=== PATIENT | female | born 1945 | race Asian ===

== ENCOUNTER 2019-05-21 17:32 | Emergency (ER) | payer MEDICARE ==
[~2019-05-21] VITALS: Ht 149.9 cm; Wt 43.1 kg
[2019-05-21] MEDS ORDERED: LATANOPROST2.5 ML OPTH (17:43)
[2019-05-21] MEDS ORDERED: JANUVIA100 MG PO (17:43)
[2019-05-21] MEDS ORDERED: LISINOPRIL10 MG PO (17:43)
[2019-05-21] MEDS ORDERED: METFORMIN HCL500 MG PO (17:43)
[2019-05-21] MEDS ORDERED: ATORVASTATIN CA20 MG PO (17:43)
== END 2019-05-21 21:42 | disposition home or self-care (01) ==
LOC: ED 17:32
DX: R11.2 Nausea with vomiting, unspecified (principal); R19.7 Diarrhea, unspecified; E11.9 Type 2 diabetes mellitus without complications; I10 Essential (primary) hypertension; Z79.899 Other long term (current) drug therapy; Z79.84 Long term (current) use of oral hypoglycemic drugs
CPT/HCPCS: 74177; 80053; 81001; 83690; 85025; 96360; 96361; 99284-25; J7030; Q9967

== ENCOUNTER 2020-01-25 18:06 | Emergency (ER) | payer MEDICARE ==
[~2020-01-25] VITALS: Ht 149.9 cm; Wt 43.1 kg
--- OUTSIDE RECORDS SUMMARY | ~2020-01-25 | XMS | Encounter Summary ---
Demographics + + + | Address | [address] | | | [place] [address] | + + + | Home Phone | | + + + | Preferred Language | Unknown | + + + | Marital Status | | + + + | Jewish Affiliation | 1041 | + + + | Race | Unknown | + + + | Ethnic Group | or | + + + Author + + + | Author | [facility] | | | and [place] | + + + | Organization | [facility] | | | and [place] | + + + | Address | Unknown | + + + | Phone | Unavailable | + + + Care Team Providers + +------+ + | Care Park Guide Name | Role | Phone | + +------+ + PCP | Unavailable | + +------+ + Encounter Details +--------+ + + + + | Date | Type | Department | Care Team | Description | +--------+ + + + + | 08/12/ | Emergency | [facility] | Sawyer Banerjee | Hypoglycemia due to | | 2018 | | [facility]ENTER | MD Donnie [address] | type 2 diabetes | | | | EMERGENCY CENTER | [address] [place], [place] | mellitus (HCC) | | | | [address] | [address] | | | | | [place], [place] | [phone] | | | | | [address] | | | | | | [phone] | | | +--------+ + + + + Social History + +-------+ +--------+------+ | Tobacco Use | Types | Packs/Day | Years | Date | | | | | Used | | + +-------+ +--------+------+ | Never Assessed | | | | | + +-------+ +--------+------+ + + + | Sex Assigned at | Date Recorded | | | | + + + | Not on file | | + + + documented as of this encounter ED Notes Conversion Transaction, Provider Unknown - 08/12/2018 7:54 PM PDTFormatting of this note m ight be different from the original. ED Notes by Maulik Mccurdy RN at 08/12/181953 Author: Maulik Mccurdy RN Service: (none) Author Type: Registered Nurse Filed: 08/12/181954 Date of Service: 08/12/181953 Status: Signed Business Process Associate: Maulik Mccurdy RN (Registered Nurse) Pt eats pack of crackers, chicken noodle soup, and orange juice. Maulik Mccurdy RN 08/12/181954 onver yamila Transaction, Provider Unknown - 08/12/2018 7:09 PM PDT ED Notes by Maulik Mccurdy RN at 08/12/181908 Author: Maulik Mccurdy RN Service: (none) Author Type: Registered Nurse Filed: 08/12/181908 Date of Service: 08/12/181908 Status: Signed Business Process Associate: Maulik Mccurdy RN (Registered Nurse) Urine sent to lab. Maulik Mccurdy RN 08/12/181908 odgdom , Sawyer Fields MD - 08/12/2018 7:03 PM PDTFormatting of this note might be different from veda vinson. ED Provider Notes by Sawyer Banerjee MD at 08/12/181902 Author: Sawyer Banerjee MD Service: -Emergency Author Type: Physician Filed: 08/12/182048 Date of Service: 08/12/181902 Status: Signed Business Process Associate: Sawyer Banerjee MD (Physician) [facility] Department of Emergency Medicine No flowsheet data found. History of Present Illness Patient Identification Shy Hernandez is a 73 y.o. female. Patient information was obtained from patient and relative(s). History/Exam limitations: none. Patient presented to the Emergency Department by: Car Chief Complaint Chief Complaint Patient presents with Hypoglycemia- Symptomatic The patient presents with a report of altered mental status and hypoglycemia. Onset of symp toms was this morning, with a worsening course since that time. This is described to be of severe severity. The quality of this change is described as: "out of it and confused and th en lethargic". The patient has also had the following associated symptoms: had a fall from bed last night without apparent injury or pain. Care prior to arrival consisted of evaluation by EMS with f inding of BG "low" so gave 25g of D50, with complete relief. Additional information related to this complaint is the following: Pt has history of type 2 DM but is not on insulin, only oral hypoglycemics. The patient s baseline cognitive and motor function is the following: lives with family. Family reports pt did not eat breakfast this morning and did not have lunch. ECF Resident?: No PCP: No primary care provider on file. No past medical history on file. No past surgical history on file. Prior to Admission medications Not on File Allergies not on file Social History Social History Marital status: Spouse name: N/A Number of children: N/A Years of education: N/A Occupational History Not on file. Social History Main Topics Smoking status: Not on file Smokeless tobacco: Not on file Alcohol use Not on file Drug use: Unknown Sexual activity: Not on file Other Topics Concern Not on file Social History Narrative No narrative on file No family history on file. Review of Systems Constitutional: Negative for: fever, chills Eyes: Negative for: Vision changes Throat: Negative for: mouth sores Cardiovascular/Respiratory: Negative for: chest pain, shortness of breath, cough Gastrointestinal: Negative for: abdominal pain, vomiting, diarrhea, black or bloody stools Genitourinary: Negative for: dysuria, hematuria, urinary problems Musculoskeletal: Negative for: joint pain Skin: Negative for: rash Neuro and psych: Negative for: fainting, else as above Endocrine/Heme/Lymph: Negative for: swollen lymph nodes All other review of systems negative except as mentioned. Physical Exam BP (!) 222/92 | Pulse 106 | Temp 96.9 F (36.1 C) | Resp 18 | Ht 1.422 m (4' 8") | Wt 45.9 kg (101 lb 3.2 oz) | SpO2 99% | BMI 22.69 kg/m Pulse Oximetry Interpretation: Normal VS: Pt VS noted to be hyperdynamic. Afebrile. General: Awake and alert. No evident distress. No signs of head injury. Eyes: Normal inspection, pupils equal and round, non-icteric ENT: Ears normal Nose normal Neck: Normal inspection Supple No lymphadenopathy No meningismus Cardiovascular: Normal rate, rhythm. No murmur. Respiratory: Normal lung sounds. No rales, rhonchi, or wheezing. Abdomen: Soft, non-tender, non-distended No guarding or rebound Back: Normal inspection Extremities: No edema or tenderness Skin: Color normal Warm and dry No rash Neuro: No facial droop. GCS 15. No motor deficit No sensory deficit Medical Decision Making and Emergency Department Course ED Department Course Pt with AMS and hypoglycemia on EMS arrival resolved with IV D50, now "back to normal". No t on insulin, only on metformin. Will screen. BG up to 159 here. CMP shows mild hyperglycemia at 183, else normal.CBC is normal. CRP normal. Waiting for u rine. Will give PO food. Urine normal. Pt back to baseline per family. Will road test. Pt ate full meal and walks normally per family on road test. Repeat BG is benign. Will di scharge with strict follow up instructions. Pt reassessed multiple times during course of ED stay and demonstrated progressive and sust ained improvement. Neither decompensation nor new symptoms observed or reported. BP 159/77 | Pulse 81 | Temp 98.7 F (37.1 C) (Oral) | Resp 16 | Ht 1.422 m (4' 8") | Wt 45.9 kg (101 lb 3.2 oz) | SpO2 100% | BMI 22.69 kg/m Records Reviewed Old medical records.. No prior ED visits in [facility] EMR. Laboratory Evaluation COMPREHENSIVE METABOLIC PANEL - Abnormal; Notable for the following: Result Value GLUCOSE 183 (*) All other components within normal limits CBC W/AUTO DIFF (REFLEX TO MANUAL) - Abnormal; Notable for the following: MONOCYTES ABS 0.82 (*) All other components within normal limits URINALYSIS (REFLEX TO MICROSCOPIC/REFLEX TO CULTURE) - Abnormal; Notable for the following: GLUCOSE 150 (*) All other components within normal limits POCT GLUCOSE - Abnormal; Notable for the following: GLUCOSE,POC SCREEN 159 (*) All other components within normal limits POCT GLUCOSE - Abnormal; Notable for the following: GLUCOSE,POC SCREEN 142 (*) All other components within normal limits C-REACTIVE PROTEIN POCT GLUCOSE Radiology and EKG Evaluation Imaging Results None ED Diagnosis Final diagnosis Hypoglycemia due to type 2 diabetes mellitus (HCC) Disposition: ED Disposition ED Disposition Condition Comment Discharge Good Follow-up Information Follow up With Specialties Details Why Contact Info Your doctor Go in [address] [facility] Emergency Department Emergency Medicine As needed [address] [address] Discharge Medications: New Prescriptions No new medications Procedures Additional Documentation Procedures Sawyer Banerjee MD 08/12/182048 onversion Transa ction, Provider Unknown - 08/12/2018 5:57 PM PDT ED Notes by Maulik Mccurdy RN at 08/12/181756 Author: Maulik Mccurdy RN Service: (none) Author Type: Registered Nurse Filed: 08/12/181758 Date of Service: 08/12/181756 Status: Signed Business Process Associate: Maulik Mccurdy RN (Registered Nurse) Pt reportedly experienced a "low blood sugar 5 times today." EMS reported they had a "low" reading on their blood glucose machine so they gave dextrose en route. Pts family reports th e pt takes metformin at home and that they tried giving orange juice and PB&J sandwiches try ing to combat the pts "low readings." Maulik Mccurdy RN 08/12/18 8869 docume nted in this encounter Plan of Treatment Not on filedocumented as of this encounter Procedures + +--------+ + + + | Procedure Name | Priori | Date/Time | Associated Diagnosis | Comments | | | ty | | | | + +--------+ + + + | POC GLUCOSE | Routin | 08/12/2018 | | Results for this | | | e | 8:41 PM | | procedure are in the | | | | PDT | | results section. | + +--------+ + + + | POC GLUCOSE | Routin | 08/12/2018 | | Results for this | | | e | 7:18 PM | | procedure are in the | | | | PDT | | results section. | + +--------+ + + + | URINALYSIS, REFLEX | Routin | 08/12/2018 | | Results for this | | MICROSCOPIC AND/OR | e | 7:02 PM | | procedure are in the | | CULTURE | | PDT | | results section. | + +--------+ + + + | EXTERNAL LAB: CBC | Routin | 08/12/2018 | | Results for this | | | e | 5:57 PM | | procedure are in the | | | | PDT | | results section. | + +--------+ + + + | C-REACTIVE PROTEIN | Routin | 08/12/2018 | | Results for this | | | e | 5:57 PM | | procedure are in the | | | | PDT | | results section. | + +--------+ + + + | COMPREHENSIVE | Routin | 08/12/2018 | | Results for this | | METABOLIC PANEL | e | 5:57 PM | | procedure are in the | | | | PDT | | results section. | + +--------+ + + + | POC GLUCOSE | Routin | 08/12/2018 | | Results for this | | | e | 5:52 PM | | procedure are in the | | | | PDT | | results section. | + +--------+ + + + documented in this encounter Results POC Glucose (08/12/2018 8:41 PM PDT) + + + + + + | Component | Value | Ref Range | Performed | Pathologist | | | | | At | Signature | + + + + + + | Glucose, | 142 (H)Comment: Testing | 65 - 99 mg/dL | EXTERNAL | | | Fingerstick | performed at [facility];[address] | | LAB | | | | [address] [facility];[place], [place] | | | | | | [address] | | | | + + + + + + + + | Specimen | + + | | + + + +---------+ + + | Performing | Address | City/State/Zipcode | Phone Number | | Organization | | | | + +---------+ + + | EXTERNAL LAB | | | | + +---------+ + + POC Glucose (08/12/2018 7:18 PM PDT) + + + + + + | Component | Value | Ref Range | Performed | Pathologist | | | | | At | Signature | + + + + + + | Glucose, | 96Comment: Testing | 65 - 99 mg/dL | EXTERNAL | | | Fingerstick | performed at [facility];[address] | | LAB | | | | [address];[place], [place] | | | | | | [address] | | | | + + + + + + + + | Specimen | + + | | + + + +---------+ + + | Performing | Address | City/State/Zipcode | Phone Number | | Organization | | | | + +---------+ + + | EXTERNAL LAB | | | | + +---------+ + + Urinalysis, Reflex Microscopic and/or Culture (08/12/2018 7:02 PM PDT) + + + + + + | Component | Value | Ref Range | Performed | Pathologist | | | | | At | Signature | + + + + + + | Color | STRAW | | EXTERNAL | | | | | | LAB | | + + + + + + | Clarity, | CLEAR | | EXTERNAL | | | Urine | | | LAB | | + + + + + + | Specific | 1.009 | 1.002 - 1.030 | EXTERNAL | | | [place], | | | LAB | | | Urine | | | | | + + + + + + | Leukocyte | NEGATIVE | | EXTERNAL | | | Esterase, | | | LAB | | | Urine | | | | | + + + + + + | Nitrite, | NEGATIVE | | EXTERNAL | | | Urine | | | LAB | | + + + + + + | Urobilinoge | NORMAL | mg/dL | EXTERNAL | | | n, Urine | | | LAB | | + + + + + + | Protein, | NEGATIVE | mg/dL | EXTERNAL | | | Urine | | | LAB | | + + + + + + | pH, Urine | 6.0 | 5.0 - 8.0 | EXTERNAL | | | | | | LAB | | + + + + + + | Blood, | NEGATIVE | | EXTERNAL | | | Urine | | | LAB | | + + + + + + | Ketones | NEGATIVE | mg/dL | EXTERNAL | | | | | | LAB | | + + + + + + | Bilirubin, | NEGATIVE | | EXTERNAL | | | Urine | | | LAB | | + + + + + + | Glucose, | 150 (A)Comment: Testing | mg/dL | EXTERNAL | | | Urine | performed at [facility];[address] | | LAB | | | | [address];[place] | | | | | | [address] | | | | + + + + + + + + | Specimen | + + | | + + + +---------+ + + | Performing | Address | City/State/Zipcode | Phone Number | | Organization | | | | + +---------+ + + | EXTERNAL LAB | | | | + +---------+ + + External Lab: DM (08/12/2018 5:57 PM PDT) + + + + + + | Component | Value | Ref Range | Performed | Pathologist | | | | | At | Signature | + + + + + + | WBC | 7.79 | 3.80 - 11.00 | EXTERNAL | | | | | K/uL | LAB | | + + + + + + | Non- | 4.13 | 3.70 - 5.10 | EXTERNAL | | | Red Blood | | M/uL | LAB | | | Cells | | | | | | Counted | | | | | + + + + + + | Hemoglobin | 12.3 | 11.3 - 15.5 | EXTERNAL | | | | | g/dL | LAB | | + + + + + + | Hematocrit, | 37.1 | 34.0 - 46.0 % | EXTERNAL | | | POC | | | LAB | | + + + + + + | MCV | 89.9 | 80.0 - 100.0 fl | EXTERNAL | | | | | | LAB | | + + + + + + | MCH | 29.8 | 27.0 - 34.0 pg | EXTERNAL | | | | | | LAB | | + + + + + + | MCHC | 33.2 | 32.0 - 35.5 | EXTERNAL | | | | | g/dL | LAB | | + + + + + + | RDW-CV | 42.9 | 37 - 53 fl | EXTERNAL | | | | | | LAB | | + + + + + + | Platelet | 211 | 150 - 400 K/uL | EXTERNAL | | | Count | | | LAB | | | Plasma | | | | | + + + + + + | MPV | 8.5 | fl | EXTERNAL | | | | | | LAB | | + + + + + + | Differentia | AUTOMATED | | EXTERNAL | | | l Type | | | LAB | | + + + + + + | % Segmented | 75.59 | % | EXTERNAL | | | | | | LAB | | | Neutrophils | | | | | + + + + + + | % | 13.06 | % | EXTERNAL | | | Lymphocytes | | | LAB | | + + + + + + | % Monocytes | 10.50 | % | EXTERNAL | | | | | | LAB | | + + + + + + | % | 0.58 | % | EXTERNAL | | | Eosinophils | | | LAB | | + + + + + + | % Basophils | 0.27 | % | EXTERNAL | | | | | | LAB | | + + + + + + | Absolute | 5.89 | 1.90 - 7.40 | EXTERNAL | | | Segmented | | K/uL | LAB | | | Neutrophils | | | | | + + + + + + | Absolute | 1.02 | 1.00 - 3.90 | EXTERNAL | | | Lymphocytes | | K/uL | LAB | | + + + + + + | Absolute | 0.82 (H) | 0.00 - 0.80 | EXTERNAL | | | Monocytes | | K/uL | LAB | | + + + + + + | Absolute | 0.05 | 0.00 - 0.50 | EXTERNAL | | | Eosinophils | | K/uL | LAB | | + + + + + + | Absolute | 0.02Comment: Testing | 0.00 - 0.10 | EXTERNAL | | | Basophils | performed at [facility];[address] | K/uL | LAB | | | | [address];[place] | | | | | | [address] | | | | + + + + + + + + | Specimen | + + | Blood specimen | | (specimen) | + + + +---------+ + + | Performing | Address | City/State/Zipcode | Phone Number | | Organization | | | | + +---------+ + + | EXTERNAL LAB | | | | + +---------+ + + C-Reactive Protein (08/12/2018 5:57 PM PDT) + + + + + + | Component | Value | Ref Range | Performed | Pathologist | | | | | At | Signature | + + + + + + | CRP | <0.4Comment: Testing | mg/dL | EXTERNAL | | | | performed at [facility];[address] | | LAB | | | | [address] [facility];[place], [place] | | | | | | [address] | | | | + + + + + + + + | Specimen | + + | | + + + +---------+ + + | Performing | Address | City/State/Zipcode | Phone Number | | Organization | | | | + +---------+ + + | EXTERNAL LAB | | | | + +---------+ + + Comprehensive Metabolic Panel (08/12/2018 5:57 PM PDT) + + + + + + | Component | Value | Ref Range | Performed | Pathologist | | | | | At | Signature | + + + + + + | Na | 141 | 135 - 145 | EXTERNAL | | | | | mmol/L | LAB | | + + + + + + | K | 4.1 | 3.5 - 4.9 | EXTERNAL | | | | | mmol/L | LAB | | + + + + + + | Cl | 106 | 99 - 109 mmol/L | EXTERNAL | | | | | | LAB | | + + + + + + | CO2 | 29 | 23 - 32 mmol/L | EXTERNAL | | | | | | LAB | | + + + + + + | Anion Gap | 10 | 5 - 20 mmol/L | EXTERNAL | | | | | | LAB | | + + + + + + | Glucose, | 183 (H) | 65 - 99 mg/dL | EXTERNAL | | | Fasting | | | LAB | | + + + + + + | BUN | 14 | 8 - 25 mg/dL | EXTERNAL | | | | | | LAB | | + + + + + + | Creatinine | 0.91 | 0.50 - 1.00 | EXTERNAL | | | | | mg/dL | LAB | | + + + + + + | BUN/Creatin | 15 | | EXTERNAL | | | ine Ratio | | | LAB | | + + + + + + | Calcium | 8.6 | 8.5 - 10.5 | EXTERNAL | | | | | mg/dL | LAB | | + + + + + + | Protein, | 6.8 | 6.3 - 8.2 g/dL | EXTERNAL | | | Total | | | LAB | | + + + + + + | Albumin | 4.0 | 3.3 - 4.8 g/dL | EXTERNAL | | | | | | LAB | | + + + + + + | Globulin | 2.8 | 1.3 - 4.9 g/dL | EXTERNAL | | | | | | LAB | | + + + + + + | A/G Ratio | 1.4 | 1.0 - 2.4 | EXTERNAL | | | | | | LAB | | + + + + + + | Bilirubin | 0.3 | 0.1 - 1.5 mg/dL | EXTERNAL | | | Total | | | LAB | | + + + + + + | ALP, | 66 | 35 - 115 U/L | EXTERNAL | | | External | | | LAB | | + + + + + + | AST | 33 | 10 - 45 U/L | EXTERNAL | | | | | | LAB | | + + + + + + | ALT | 23 | 10 - 65 U/L | EXTERNAL | | | | | | LAB | | + + + + + + | Estimated | >60Comment: GFR <60: | mL/min/1.73m2 | EXTERNAL | | | GFR | CHRONIC KIDNEY DISEASE, | | LAB | | | | IF FOUND OVER A 3 MONTH | | | | | | PERIOD.GFR <15: KIDNEY | | | | | | FAILURE.FOR | | | | | | AMERICANS, MULTIPLY THE | | | | | | CALCULATED GFR BY | | | | | | 1.210.This eGFR is | | | | | | calculated using the | | | | | | MDRD IDND traceable | | | | | | equation.Testing | | | | | | performed at [facility];[address] | | | | | | [facility];[place], [place] | | | | | | [address] | | | | + + + + + + + + | Specimen | + + | Blood specimen | | (specimen) | + + + +---------+ + + | Performing | Address | City/State/Zipcode | Phone Number | | Organization | | | | + +---------+ + + | EXTERNAL LAB | | | | + +---------+ + + POC Glucose (08/12/2018 5:52 PM PDT) + + + + + + | Component | Value | Ref Range | Performed | Pathologist | | | | | At | Signature | + + + + + + | Glucose, | 159 (H)Comment: Testing | 65 - 99 mg/dL | EXTERNAL | | | Fingerstick | performed at [facility];[address] | | LAB | | | | [address];[place] | | | | | | [address] | | | | + + + + + + + + | Specimen | + + | | + + + +---------+ + + | Performing | Address | City/State/Zipcode | Phone Number | | Organization | | | | + +---------+ + + | EXTERNAL LAB | | | | + +---------+ + + documented in this encounter Visit Diagnoses + + | Diagnosis | + + | Hypoglycemia due to type 2 diabetes mellitus (HCC) | + + documented in this encounter
--- OUTSIDE RECORDS SUMMARY | ~2020-01-25 | XMS | Clinical Summary ---
Demographics + + + | Address | [address] | | | [place] [address] | + + + | Home Phone | | + + + | Preferred Language | Unknown | + + + | Marital Status | | + + + | Quaker Affiliation | 1041 | + + + | Race | Unknown | + + + | Ethnic Group | or | + + + Author + + + | Author | [facility] | | | and [place] | + + + | Organization | [facility] | | | and [place] | + + + | Address | Unknown | + + + | Phone | Unavailable | + + + Care Team Providers + +------+ + | Care Tso Name | Role | Phone | + +------+ + PCP | Unavailable | + +------+ + Allergies Not on File Medications Not on file Active Problems Not on file Social History + +-------+ +--------+------+ | Tobacco [...] on file | | + + + Last Filed Vital Signs + + + + + | Vital Sign | Reading | Time Taken | Comments | + + + + + | Blood Pressure | 138/69 | 08/12/2018 9:11 PM | | | | | PDT | | + + + + + | Pulse | 80 | 08/12/2018 9:11 PM | | | | | PDT | | + + + + + | Temperature | 36.8 C (98.2 F) | 08/12/2018 9:11 PM | | | | | PDT | | + + + + + | Respiratory Rate | 16 | 08/12/2018 9:11 PM | | | | | PDT | | + + + + + | Oxygen Saturation | - | - | | + + + + + | Inhaled Oxygen | - | - | | | Concentration | | | | + + + + + | Weight | 45.9 kg (101 lb 3.2 | 08/12/2018 9:11 PM | | | | oz) | PDT | | + + + + + | Height | 142.2 cm (4' 8") | 08/12/2018 9:11 PM | | | | | PDT | | + + + + + | Body Mass Index | 22.69 | 08/12/2018 9:11 PM | | | | | PDT | | + + + + + Plan of Treatment + + +-------+ + | Health Maintenance | Due Date | Last | Comments | | | | Done | | + + +-------+ + | Hepatitis C | | | | | Screening | 5 | | | + + +-------+ + | Vaccine: | | | | | Dtap/Tdap/Td (1 - | 4 | | | | Tdap) | | | | + + +-------+ + | Colorectal Cancer | | | | | Screening | 5 | | | | (Colonoscopy) | | | | + + +-------+ + | Vaccine: Zoster (1 | | | | | of 2) | 5 | | | + + +-------+ + | Breast Cancer | | | | | Screening | 0 | | | + + +-------+ + | Vaccine: | | | | | Pneumococcal 65+ (1 | 0 | | | | of 1 - PPSV23) | | | | + + +-------+ + | Adult Annual | | | | | Wellness Visit | 0 | | | + + +-------+ + | Vaccine: Influenza | | | | | (#1) | 0 | | | + + +-------+ + Results Not on filefrom Last 3 Months
[~2020-01-25 18:06] MED LIST: ATORVASTATIN CA20 MG PO; JANUVIA100 MG PO; LATANOPROST2.5 ML OPTH; LISINOPRIL10 MG PO; METFORMIN HCL500 MG PO
[2020-01-25] MEDS ORDERED: ALLEGRA ALLERG180 MG PO (18:26)
--- NOTE | 2020-01-26 13:36 | EKG ---
[facility] [address] [facility] [place], [place] [address] Signed Normal sinus rhythm Normal ECG No previous ECGs available Confirmed by WILFRID VENTURA MD ([id number]) on 01/26/2020 1:36:33 PM Electronically Signed By: WILFRID VENTURA MD 01/26/20 1336 PATIENT NAME: MARK PAGAN Electrocardiogram DATE OF : 43 PHYSICIAN: WILFRID VENTURA MD REPORT #: [id number] REPORT IS CONFIDENTIAL AND NOT TO BE RELEASED WITHOUT AUTHORIZATION
== END 2020-01-25 20:49 | disposition home or self-care (01) ==
LOC: ED 18:06
DX: E11.9 Type 2 diabetes mellitus without complications (principal); I10 Essential (primary) hypertension; Z86.73 Personal history of transient ischemic attack (TIA), and cerebral infarction without residual deficits; Z88.8 Allergy status to other drugs, medicaments and biological substances; Z79.899 Other long term (current) drug therapy; Z79.84 Long term (current) use of oral hypoglycemic drugs
CPT/HCPCS: 80053; 81001; 84443; 85025; 93005; 93010; 96361; 96374; 99285-25; J2405; J7030

== ENCOUNTER 2021-03-05 17:29 | Emergency (ER) | payer MEDICARE ==
[~2021-03-05] VITALS: Ht 149.9 cm; Wt 43.1 kg
[~2021-03-05 17:29] MED LIST changes: +ALLEGRA ALLERG180 MG PO
[2021-03-05] MEDS ORDERED: ONDANSETRON ODT4 MG PO (19:20)
--- NOTE | 2021-03-05 22:30 | EKG ---
[facility] [address] [facility] [place], [place] [address] Signed Normal sinus rhythm Normal ECG When compared with ECG of 25-JAN-2020 18:42, No significant change was found Confirmed by BRIANA MILLER DO ([id number]) on 03/05/2021 10:30:22 PM Electronically Signed By: BRIANA MILLER DO 03/05/212229 PATIENT NAME: ZAY PAGANAUSTIN CAMERON Electrocardiogram DATE OF : 43 PHYSICIAN: BRIANA MILLER DO REPORT #: [id number] REPORT IS CONFIDENTIAL AND NOT TO BE RELEASED WITHOUT AUTHORIZATION
== END 2021-03-05 19:53 | disposition home or self-care (01) ==
LOC: ED 17:29
DX: K29.00 Acute gastritis without bleeding (principal); R53.1 Weakness; Z63.4 Disappearance and death of family member; E11.9 Type 2 diabetes mellitus without complications; I10 Essential (primary) hypertension; Z86.73 Personal history of transient ischemic attack (TIA), and cerebral infarction without residual deficits; Z79.899 Other long term (current) drug therapy; Z79.84 Long term (current) use of oral hypoglycemic drugs
CPT/HCPCS: 80053; 81001; 83735; 84484; 85025; 93005; 93010; 96374; 99285-25; J2405; J7040